=== PATIENT | male | born 1980 | race Caucasian/White ===

== ENCOUNTER 2017-12-26 02:48 | Emergency (ER) | payer MEDICAID ==
--- NOTE | 2017-12-26 03:21 | ED Physician Chart ---
ED Chief Complaint/HPI - Patient Information Date Seen:: 12/26/17 Time Seen:: 03:16 Chief Complaint:: nose bleed History of Present Illness:: 37 yr old male with etoh abuse drank 2 fifths of vodka today and his nose started pouring blood now stopped pt states he was taking cyboxin and took himself off and started hitting the bottle again pt with chronic etoh here requesting to take him home Allergies:: Allergies Allergy/AdvReac Type Severity Reaction Status Date / Time amoxicillin Allergy Verified 12/26/17 02:58 Vitals:: Vital Signs - 8 hr 12/26/17 02:50 Temp 97.9 F HR 116 RR 18 BP 137/93 O2 Sat % 92 ED Review of Systems - Review of Systems General/Constitutional: No fever, No chills Skin: Other (scab lt forehead) Head: No headache Eyes: No loss of vision ENT: No earache Neck: No neck pain Cardio Vascular: No chest pain Pulmonary: No SOB GI: No nausea, No vomiting G/U: No dysuria Musculoskeletal: No bone or joint pain Endocrine: No polyuria Psychiatric: No depression Hematopoietic: No bruising Allergic/Immuno: No urticaria Neurological: No syncope ED Past Medical History - Past Medical History Past Medical History: Other (etoh abuse) Family Medical History - Family Member Mother History Unknown: Yes ED Physical Exam - Physical Examination General/Constitutional: Awake, Well-developed, well-nourished Head: Atraumatic Other ENMT comments:: dry blood both nares Neck: Nontender Respiratory: Nl effort/Exclusion Cardio Vascular: RRR GI: No tenderness/rebounding/guarding Extremities: No tenderness or effusion Neuro/Psych: Alert/oriented ED Assessment - Assessment General Assessment: epistaxis ED Septic Shock - . Is Septic Shock (SBP<90, OR Lactate>4 mmol\L) present?: No - <6hrs of presentation: Vital Signs: Vital Signs - 8 hr 12/26/17 02:50 Temp 97.9 F HR 116 RR 18 BP 137/93 O2 Sat % 92 ED Reassessment (Disposition) - Reassessment Reassessment Condition:: Improved - Diagnosis Diagnosis:: epistaxis - Aftercare/Follow up Instructions Aftercare/Follow-Up Instructions:: Counseled pt regarding lab results/diagnosis & need follow up, Counseled pt & family regarding lab results/diagnosis & need follow up - Patient Disposition Discharge/Transfer:: Home Condition at Disposition:: Stable
== END 2017-12-26 04:02 | disposition left against medical advice (07) ==
LOC: ER 02:48
DX: R04.0 Epistaxis (principal); F10.10 Alcohol abuse, uncomplicated; Z88.0 Allergy status to penicillin
CPT/HCPCS: Z7502

== ENCOUNTER 2017-12-28 11:08 | Emergency (ER) | payer MEDICAID ==
[2017-12-28] MEDS ORDERED: Cetacaine 56 mL Bottle TP ONE (11:21)
[2017-12-28] MEDS ORDERED: BENZOCAINE 20% TP ONE (11:23)
[2017-12-28] MEDS ORDERED: Triple Antibiotic 0.94 gm Pkt TP STA (11:24)
[2017-12-28] MEDS ORDERED: Bacitracin pkt 1 gm Pkt TP ONE ×2 (11:26→11:39)
--- NOTE | 2017-12-28 11:53 | ED Physician Chart ---
ED Chief Complaint/HPI - Patient Information Date Seen:: 12/28/17 Time Seen:: 11:30 Chief Complaint:: nose bleed from both nares History of Present Illness:: nose bleed from both nares in a known alcoholic whose coags and platelets are unknown. He had forward face trauma 3 days ago and started bleeding from his nose. CT scan was performed at [facility] with lab work. Results of face and brain CT scan were normal. Had a packing placed by Dr. Salazar on a previous visit here and he had the nurse pull it out because it was uncomfortable. Patient was checking himself into alcohol rehab today with [facility] when blood started coming out of his nose on both sides. Allergies:: Allergies Allergy/AdvReac Type Severity Reaction Status Date / Time amoxicillin Allergy Verified 12/26/17 02:58 Vitals:: Vital Signs - 8 hr 12/28/17 11:28 Temp 98.3 F HR 122 RR 23 BP 137/83 O2 Sat % 98 Historian:: Patient, Family Member Review:: Nurse's Note Reviewed ED Review of Systems - Review of Systems General/Constitutional: No fever, No chills, No weight loss, No weakness, No diaphoresis, No edema, No loss of appetite Skin: No skin lesions, No rash, No bruising Head: No headache, No light-headedness Eyes: No loss of vision, No pain, No diplopia ENT: No earache, Nasal drainage, No sore throat, Other (nose bleed (anterior and posterior) more on the right than on the left.) Neck: No neck pain, No swelling, No thyromegaly, No stiffness, No mass noted Cardio Vascular: No chest pain, No palpitations, No PND, No orthopnea, No edema Pulmonary: No SOB, No cough, No sputum, No wheezing GI: No nausea, No vomiting, No diarrhea, No pain, No melena, No hematochezia, No constipation, No hematemesis G/U: No dysuria, No frequency, No hematuria Psychiatric: No prior psych history, No depression, No anxiety, No suicidal ideation ED Past Medical History - Past Medical History Obtainable: Yes Past Medical History: Other (alcoholism.) Family Medical History - Family Member Mother History Unknown: Yes ED Physical Exam - Physical Examination General/Constitutional: Awake Other Gen/Cons comments:: patient is bleeding from both nares (more from the right than from the left). he has gauze packed up his nose on both sides. overweight. Head: Atraumatic Eyes: Lids, conjuctiva normal, PERRL, EOMI Skin: Nl inspection ENMT: External ears, nose nl Other ENMT comments:: blood back in the oropharynx. bilateral gauze present in both nares with bright red blood present on gauze. dripping from right nares after the gauze was pulled. Neck: Nontender, Full ROM w/o pain, No nuchal rigidity, No stridor Respiratory: Nl effort/Exclusion Cardio Vascular: No murmur, gallop, rubs, NL S1 S2 Other Cardio Vascular comments:: tachycardia. GI: No tenderness/rebounding/guarding, No organomegaly, No hernia, Normal BS's, Nondistended, No mass/bruits, No McBurney tenderness : No CVA tenderness Extremities: No tenderness or effusion, Full ROM, normal strength in all extremities, No edema, Normal digits & nails Neuro/Psych: Alert/oriented, Normal sensory exam, Normal motor strength Other Neuro/Psych comments:: fine tremor present. given Ativan for this. Patient also took oral Ativan and drank alcohol hours before. Misc: Normal back, No paraspinal tenderness ED Assessment - Assessment General Assessment: patient was observed for hours after the rhino rockets were placed. no further bleeding from either nares and no bleeding in the back of his oropharynx. the balloons were taped to his cheeks after his skin was degreased with alcohol pads and tincture of benzoin was placed. A drip sponge was placed underneath his nares. was shown how to reinforce the tape and how to make a new drip sponge. Assessment/Comments:: came in to the ER to take patient home. She will be in charge of his medications for him. They both work in Mental Health and she doesn't need a work note to take care of him. - Procedures Procedures:: place of anterior and posterior nasal packing (rhino rocket) to the right nares and to the left nares after anesthesia application with cetacaine spray. The rhino rockets were saturated with triple antibiotic ointment prior to being placed. ED Septic Shock - . Is Septic Shock (SBP<90, OR Lactate>4 mmol\L) present?: No - <6hrs of presentation: Vital Signs: Vital Signs - 8 hr 12/28/17 11:28 Temp 98.3 F HR 122 RR 23 BP 137/83 O2 Sat % 98 ED Reassessment (Disposition) - Reassessment Reassessment Condition:: Improved - Diagnosis Diagnosis:: Nosebleed, resolved. Alcoholism Polysubstance abuse Thrombocytopenia. - Aftercare/Follow up Instructions Aftercare/Follow-Up Instructions:: Refer to Discharge Instructions Notes:: follow up with an ENT to have the packing removed this Sunday or with an ER that has an ENT on staff. Take the Clindamycin to prevent a sinus infection. Take the Ativan to prevent withdrawal from alcohol. Follow up with your plans to go for alcohol rehab. Prevent bending over at the waist. Prevent coughing. Prevent vomiting. Medication Prescribed:: Ativan taper for 3 days. Clindamycin Zofran - Patient Disposition Discharge/Transfer:: Home Condition at Disposition:: Stable, Improved
[2017-12-28] MEDS ORDERED: Multivitamin Inj 10 ML, Thiamine HCL 100 MG, Magnesium Sulfate 2 GM, Folic Acid 1 MG in... IV ONE ×2 (12:08→12:48)
[2017-12-28 12:33] LABS: % BASOPHILS 0.8 % (0.0-2.0); % EOSINOPHILS 0.5 % (0.0-5.0); % MONOCYTES 4.7 % (2.0-10.0); HEMOGLOBIN 10.7 gm/dL (12-16); LYMPHOCYTE ABSOLUTE 1.8 Th/cmm (1.5-3.0); MEAN CELL VOLUME 84.3 fl (80-99); MEAN CORPUSCULAR HGB CONC 35.6 pg (28.0-36.0); MEAN PLATELET VOLUME 7.5 fl; MONOCYTE ABSOLUTE 0.2 Th/cmm (0.3-1.0); NEUTROPHILE ABSOLUTE 2.4 Th/cmm (1.8-8.0); PLATELET COUNT 119 Th/cmm (150-400); RED BLOOD COUNT 3.56 Mil/cmm (4.30-5.70); RED CELL DISTRIBUTION WIDTH 13.6 % (11.5-20.0); WHITE BLOOD COUNT 4.4 Th/cmm (4.8-10.8)
[2017-12-28 12:46] LABS: INR 0.98 (0.5-1.4); PROTHROMBIN TIME (TEST) 10.2 SECONDS (9.5-11.5)
[2017-12-28] MEDS ORDERED: Clindamycin 600mg/50mL 600 MG/50 ML BAG IV ONE (12:47)
[2017-12-28 12:58] LABS: BENZODIAZEPINES QUAL URINE POSITIVE (NEGATIVE); OPIATES (MORPHINE) QUAL. URINE POSITIVE (NEGATIVE)
[2017-12-28 12:59] LABS: AMPHETAMINE URINE NEGATIVE (NEGATIVE); BARBITURATES URINE NEGATIVE (NEGATIVE); CANNABINOID THC NEGATIVE (NEGATIVE); COCAINE METABOLITE QUAL URINE NEGATIVE (NEGATIVE); METHADONE URINE NEGATIVE (NEGATIVE); METHAMPHETAMINES QUAL URINE NEGATIVE (NEGATIVE); PHENCYCLIDINE (PCP) URINE NEGATIVE (NEGATIVE); TRICYCLICS (TCA) QUAL. URINE NEGATIVE (NEGATIVE)
[2017-12-28] MEDS ORDERED: Clindamycin 150 mg/mL 4mL Vial ONE (13:29)
== END 2017-12-28 15:15 | disposition home or self-care (01) ==
LOC: ER 11:08
DX: R04.0 Epistaxis (principal); F10.20 Alcohol dependence, uncomplicated; F19.10 Other psychoactive substance abuse, uncomplicated; D69.6 Thrombocytopenia, unspecified; Y90.1 Blood alcohol level of 20-39 mg/100 ml; Z88.0 Allergy status to penicillin
CPT/HCPCS: 99284; 96365; 30901; 96375; 96376; 36415; 80307; 85025; 85610; 80320; J2060 ×3; J2405; X5958; Z7502; Z7610